=== PATIENT | female | born 2000 | race Caucasian/White ===

== ENCOUNTER 2022-12-19 12:56 | Emergency (ER) | payer OTHER ==
[2022-12-19] MEDS ORDERED: Dexamethasone 10 MG/ML SDV IM ONE (13:13)
== END 2022-12-19 16:14 | disposition home or self-care (01) ==
LOC: JD.ED 12:56
DX: S09.90XA Unspecified injury of head, initial encounter (principal); V80.010A Animal-rider injured by fall from or being thrown from horse in noncollision accident, initial encounter; Y93.52 Activity, horseback riding
CPT/HCPCS: 36415; 70450; 80053; 81003; 81025; 85025; 96372; 99284; J1100; 99282